=== PATIENT | male | born 1980 | race Caucasian/White ===

== ENCOUNTER 2021-07-07 10:10 | Outpatient (CLI) | payer OTHER | END 2021-07-07 10:11 | disposition home or self-care (01) | LOC: CSHWCC 10:10 | PROVIDERS: ATTEND Nurse Practitioner Family | DX: L57.0 Actinic keratosis (principal) | CPT/HCPCS: 11102; 88305; 99212; G0463 ==

== ENCOUNTER 2021-07-28 09:50 | Outpatient (CLI) | payer OTHER | END 2021-07-28 09:51 | disposition home or self-care (01) | LOC: CSHWCC 09:50 | PROVIDERS: ATTEND Nurse Practitioner Family | DX: L89.893 Pressure ulcer of other site, stage 3 (principal); E10.40 Type 1 diabetes mellitus with diabetic neuropathy, unspecified; E10.65 Type 1 diabetes mellitus with hyperglycemia; I10 Essential (primary) hypertension; I70.203 Unspecified atherosclerosis of native arteries of extremities, bilateral legs; Z89.512 Acquired absence of left leg below knee | CPT/HCPCS: 99212; G0463 ==

== ENCOUNTER 2023-09-13 13:41 | Outpatient (CLI) | payer MEDICARE, OTHER | END 2023-09-13 13:42 | disposition home or self-care (01) | LOC: CSHWCC 13:41 | PROVIDERS: ATTEND Physician Assistant | DX: E10.622 Type 1 diabetes mellitus with other skin ulcer (principal); L89.892 Pressure ulcer of other site, stage 2; E10.51 Type 1 diabetes mellitus with diabetic peripheral angiopathy without gangrene; Z89.512 Acquired absence of left leg below knee | CPT/HCPCS: 97597; G0463; 99213 ==

== ENCOUNTER 2023-09-27 13:38 | Outpatient (CLI) | payer MEDICARE, OTHER | END 2023-09-27 13:39 | disposition home or self-care (01) | LOC: CSHWCC 13:38 | PROVIDERS: ATTEND Nurse Practitioner Family | DX: E10.622 Type 1 diabetes mellitus with other skin ulcer (principal); L89.892 Pressure ulcer of other site, stage 2; I73.9 Peripheral vascular disease, unspecified; Z89.512 Acquired absence of left leg below knee | CPT/HCPCS: 97597; G0463; 99212 ==

== ENCOUNTER 2023-10-18 15:40 | Outpatient (CLI) | payer MEDICARE, OTHER | END 2023-10-18 15:41 | disposition home or self-care (01) | LOC: CSHWCC 15:40 | PROVIDERS: ATTEND Nurse Practitioner Family | DX: L89.892 Pressure ulcer of other site, stage 2 (principal); I73.9 Peripheral vascular disease, unspecified; E10.622 Type 1 diabetes mellitus with other skin ulcer; Z89.512 Acquired absence of left leg below knee | CPT/HCPCS: 11042 ==